=== PATIENT | female | born 1995 | race Caucasian/White ===

== ENCOUNTER 2018-05-14 17:58 | Emergency (ER) | payer OTHER ==
[~2018-05-14] VITALS: Ht 170.2 cm; Wt 70.0 kg
[2018-05-14 18:15] VITALS: BP 121/74
[2018-05-14] MEDS ORDERED: KETOROLAC 30 MG/1 ML IM ONE (18:30)
[2018-05-14] MEDS ORDERED: KETOROLAC 30 MG/1 ML ONE (18:55)
== END 2018-05-14 20:28 | disposition home or self-care (01) ==
LOC: ED 20:05
DX: S16.1XXA Strain of muscle, fascia and tendon at neck level, initial encounter (principal); S83.92XA Sprain of unspecified site of left knee, initial encounter; M54.6 Pain in thoracic spine; M54.5 Low back pain; V49.49XA Driver injured in collision with other motor vehicles in traffic accident, initial encounter; Y93.89 Activity, other specified; Y99.8 Other external cause status; Y92.89 Other specified places as the place of occurrence of the external cause
CPT/HCPCS: 72072; 72110; 72125; 73564; 96372; 99284; J1885

== ENCOUNTER 2020-07-22 17:02 | Emergency (ER) | payer OTHER ==
[~2020-07-22] VITALS: Ht 170.2 cm; Wt 61.7 kg
[2020-07-22] MEDS ORDERED: CEPH-368 PO (17:46)
--- NOTE | 2020-07-22 18:03 | NUR ---
BREAK RN: PT UPRIGHT ON GURNEY AWAKE & COMFORTABLE, TEXTING ON PHONE, RESPONDS APPROP TO STAFF, NAD, NO NEEDS AT HTIS TIME, AWAITING US, VISITOR AT BS, CALL LIGHT WITHIN REACH.
[2020-07-22 18:10] LABS: BASOPHILS % (AUTO) 1 % (0-1); EOSINOPHILS # (AUTO) 0.01 x10^3/uL (0-0.4); EOSINOPHILS % (AUTO) 0 % (1-7); LYMPHOCYTES # (AUTO) 1.87 x10^3/uL (1-3.4); LYMPHOCYTES % (AUTO) 19 % (22-44); MD NO; MEAN CORPUSCULAR HEMOGLOBIN 32.4 pg (27.0-34.8); MEAN CORPUSCULAR HGB CONC 33.2 g/dL (32.4-35.8); MEAN CORPUSCULAR VOLUME 97.6 fL (80-100); MEAN PLATELET VOLUME 8.7 fL (7.4-10.4); MONOCYTES # (AUTO) 0.46 x10^3/uL (0.2-0.8); MONOCYTES % (AUTO) 5 % (2-9); NEUTROPHILS # (AUTO) 7.35 x10^3/uL (1.8-6.8); NEUTROPHILS % (AUTO) 75 % (42-75); PLATELET COUNT 276 x10^3/uL (130-400); RED BLOOD COUNT 3.88 x10^6/uL (3.82-5.3); RED CELL DISTRIBUTION WIDTH 13.4 % (9.6-15.2)
--- NOTE | 2020-07-22 18:12 | NUR ---
BREAK RN: PT TO US
[2020-07-22 18:21] LABS: ALBUMIN 3.6 g/dL (3.4-5.0); ANION GAP 7 mmol/L (5-15); CALCIUM 8.8 mg/dL (8.5-10.1); CHLORIDE 107 mmol/L (98-107); CREATININE 0.46 mg/dL (0.55-1.02)
[2020-07-22 19:12] VITALS: BP 111/64
[2020-07-22 19:32] VITALS: BP 103/55
== END 2020-07-22 20:13 | disposition home or self-care (01) ==
LOC: ED 20:05
DX: O20.0 Threatened abortion (principal); Z3A.08 8 weeks gestation of pregnancy
CPT/HCPCS: 36415; 76801; 80048; 82040; 84702; 85025; 86850; 86900; 99284; J2790; 96372

== ENCOUNTER 2020-08-02 21:27 | Emergency (ER) | payer OTHER ==
[~2020-08-02] VITALS: Ht 170.2 cm; Wt 64.0 kg
[~2020-08-02 21:27] MED LIST: CEPH-368 PO
--- NOTE | 2020-08-02 22:15 | NUR ---
PT SITTING IN BED, CONNECTED TO BP AND O2 MONITORS. PT TEARFUL, UPDATED ON POC, AND CONCERNS ADDRESSED. GRANDMOTHER AT BEDSIDE, CALL LIGHT IN REACH. LAB HAS BEEN TO BEDSIDE.
[2020-08-02 22:19] LABS: BASOPHILS # (AUTO) 0.19 x10^3/uL (0-0.1); BASOPHILS % (AUTO) 2 % (0-1); EOSINOPHILS # (AUTO) 0.18 x10^3/uL (0-0.4); EOSINOPHILS % (AUTO) 1 % (1-7); LYMPHOCYTES # (AUTO) 2.97 x10^3/uL (1-3.4); LYMPHOCYTES % (AUTO) 23 % (22-44); MD NO; MEAN CORPUSCULAR HEMOGLOBIN 32.4 pg (27.0-34.8); MEAN CORPUSCULAR HGB CONC 33.4 g/dL (32.4-35.8); MEAN PLATELET VOLUME 8.4 fL (7.4-10.4); MONOCYTES # (AUTO) 0.73 x10^3/uL (0.2-0.8); MONOCYTES % (AUTO) 6 % (2-9); NEUTROPHILS % (AUTO) 68 % (42-75); PLATELET COUNT 291 x10^3/uL (130-400); RED BLOOD COUNT 3.93 x10^6/uL (3.82-5.3); RED CELL DISTRIBUTION WIDTH 13.8 % (9.6-15.2)
--- NOTE | 2020-08-02 22:20 | NUR ---
PT TO IMAGING.
[2020-08-02 23:14] VITALS: BP 132/79
--- NOTE | 2020-08-02 23:45 | NUR ---
ERP TO BEDSIDE TO UPDATE PT ON POC. PT NO LONGER TEARFUL. SIGNIFICANT OTHER AT BEDSIDE. PT PROVIDED WITH UNDERWEAR FOR D/C.
== END 2020-08-02 23:58 | disposition home or self-care (01) ==
LOC: ED 22:12
DX: O20.0 Threatened abortion (principal); N93.8 Other specified abnormal uterine and vaginal bleeding; Z3A.09 9 weeks gestation of pregnancy
CPT/HCPCS: 36415; 76801; 84702; 85025; 99284

== ENCOUNTER 2020-10-22 18:27 | Outpatient (CLI) | payer OTHER ==
[~2020-10-22] VITALS: Ht 170.2 cm; Wt 72.7 kg
[2020-10-22 19:09] LABS: MICROSCOPIC AUTO
[2020-10-22] MEDS ORDERED: NITROFURANTOIN (MACROBID) 100 MG CAPSULE PO ONE (19:30)
[2020-10-22] MEDS ORDERED: ONDANSETRON ODT 4 MG PO ONE (19:30)
[2020-10-22] MEDS ORDERED: ONDANSETRON ODT 4 MG ONE (19:32)
[2020-10-22] MEDS ORDERED: NITROFURANTOIN (MACROBID) 100 MG CAPSULE ONE (19:32)
[2020-10-22] MEDS ORDERED: PLEASE ENTER HEIGHT AND WEIGHT MC SCH (20:00)
== END 2020-10-22 20:37 | disposition home or self-care (01) ==
LOC: LDOP 18:27
PROVIDERS: ATTEND Obstetrics & Gynecology
DX: O26.893 Other specified pregnancy related conditions, third trimester (principal); R10.9 Unspecified abdominal pain; Z3A.38 38 weeks gestation of pregnancy
CPT/HCPCS: 81001; 87086; 99211; Q0162; G0463

== ENCOUNTER 2021-02-19 19:49 | Inpatient (IN) | payer MEDICAID, OTHER ==
[~2021-02-19] VITALS: Ht 170.2 cm; Wt 66.0 kg
[2021-02-19 19:54] VITALS: BP 134/74
[2021-02-19] MEDS: LACTATED RINGERS 1,000 ML IV SCH (20:15)
[2021-02-19] MEDS ORDERED: OXYTOCIN 30U/ 0.9% NaCL 500ML 500 ML ONE (20:21)
[2021-02-19] MEDS ORDERED: MISOPROSTOL 200 MCG TABLET ONE (20:21)
[2021-02-19] MEDS ORDERED: LIDOCAINE 1%, 20ML ONE (20:21)
[2021-02-19] MEDS ORDERED: NEWBORN KIT ONE (20:21)
[2021-02-19] MEDS: D5%-LACTATED RINGERS 1,000 ML IV SCH (21:00)
[2021-02-19] MEDS ORDERED: PENICILLIN GK 5,000,000 UNITS in DEXTROSE 5% 100 ML IVPB ONE (21:00)
[2021-02-19] MEDS ORDERED: OXYTOCIN 30U/ 0.9% NaCL 500ML 500 ML IV PRN (21:00)
[2021-02-19] MEDS ORDERED: TERBUTALINE 1 MG/ML, 1ML IVPush PRN (21:00)
[2021-02-19] MEDS ORDERED: TERBUTALINE 1 MG/ML, 1ML SQ PRN (21:00)
[2021-02-19] MEDS ORDERED: FENTANYL PF 100 MCG/2ML IV PRN (21:00)
[2021-02-19] MEDS ORDERED: FENTANYL PF 100 MCG/2ML IVPush PRN (21:00)
[2021-02-19] MEDS ORDERED: ONDANSETRON 2MG/ML, 2ML IVPush PRN (21:00)
[2021-02-19] MEDS ORDERED: OXYTOCIN 30U/ 0.9% NaCL 500ML 500 ML IV ONE (21:00)
[2021-02-19] MEDS ORDERED: CALCIUM CARBONATE 500 MG TAB.CHEW PO PRN (21:00)
[2021-02-19 21:04] LABS: AMPHETAMINE SCREEN, URINE Negative (Negative); BARBITURATE SCREEN, URINE Negative (Negative); BENZODIAZEPINE SCREEN, URINE Negative (Negative); CANNABINOID SCREEN, URINE Positive (Negative); COCAINE SCREEN, URINE Negative (Negative); METHADONE SCREEN, URINE Negative (Negative); OPIATE SCREEN, URINE Negative (Negative)
[2021-02-19 21:26] LABS: BASOPHILS % (AUTO) 0 % (0-1); EOSINOPHILS % (AUTO) 1 % (1-7); LYMPHOCYTES % (AUTO) 21 % (22-44); MEAN CORPUSCULAR HEMOGLOBIN 31.7 pg (27.0-34.8); MEAN CORPUSCULAR HGB CONC 33.6 g/dL (32.4-35.8); MEAN PLATELET VOLUME 8.7 fL (7.4-10.4); MONOCYTES % (AUTO) 6 % (2-9); NEUTROPHILS % (AUTO) 72 % (42-75); PLATELET COUNT 295 x10^3/uL (130-400); RED BLOOD COUNT 3.85 x10^6/uL (3.82-5.3); RED CELL DISTRIBUTION WIDTH 13.4 % (9.6-15.2)
[2021-02-19] MEDS ORDERED: LACTATED RINGERS 1,000 ML IVBOLUS PRN (21:30)
[2021-02-19] MEDS ORDERED: EPHEDRINE 50 MG/ML, 1ML IVPush PRN (21:30)
[2021-02-19] MEDS ORDERED: FENTANYL/BUPIV./NS/PF 250 ML EPIDCONT SCH (21:30)
[2021-02-19] MEDS ORDERED: NALOXONE 0.4 MG/ML, 1ML IVPush PRN (21:30)
[2021-02-19 21:31] LABS: MD NO
[2021-02-19] MEDS ORDERED: BUPIVACAINE 0.25% ONE (21:41)
[2021-02-20] MEDS: PENICILLIN GK 2,500,000 UNITS in DEXTROSE 5% 100 ML IVPB SCH ×3 (03:40→09:00)
[2021-02-20] MEDS: LACTATED RINGERS 1,000 ML IV SCH ×3 (05:00→08:16)
[2021-02-20] MEDS: D5%-LACTATED RINGERS 1,000 ML IV SCH (05:00)
[2021-02-20] MEDS ORDERED: BUPIVACAINE 0.25% ONE (07:23)
[2021-02-20 07:39] VITALS: BP 109/66
[2021-02-20] MEDS ORDERED: ONDANSETRON 2MG/ML, 2ML IV PRN (08:30)
[2021-02-20] MEDS ORDERED: HYDROcodone/APAP 5/325 TABLET PO PRN ×2 (08:30)
[2021-02-20] MEDS: OXYTOCIN 30U/ 0.9% NaCL 500ML 500 ML IV SCH ×2 (08:30→18:30)
[2021-02-20] MEDS ORDERED: SIMETHICONE 80 MG CHEW TAB PO PRN (08:30)
[2021-02-20] MEDS ORDERED: MISOPROSTOL 200 MCG TABLET PR PRN (08:30)
[2021-02-20] MEDS ORDERED: METHYLERGONOVINE 0.2 MG/ML IM PRN (08:30)
[2021-02-20] MEDS: PRENATAL VIT/IRON/FA 1 EACH TABLET PO SCH (09:00)
[2021-02-20 10:34] VITALS: BP 120/68
[2021-02-20] MEDS: IBUPROFEN 600 MG TABLET PO PRN ×2 (14:45→20:51)
[2021-02-20 16:19] VITALS: BP 95/57
[2021-02-20 16:43] LABS: BASOPHILS % (AUTO) 0 % (0-1); EOSINOPHILS % (AUTO) 1 % (1-7); LYMPHOCYTES % (AUTO) 12 % (22-44); MEAN CORPUSCULAR HEMOGLOBIN 32.5 pg (27.0-34.8); MEAN CORPUSCULAR HGB CONC 34.1 g/dL (32.4-35.8); MEAN PLATELET VOLUME 8.6 fL (7.4-10.4); MONOCYTES % (AUTO) 6 % (2-9); NEUTROPHILS % (AUTO) 81 % (42-75); PLATELET COUNT 239 x10^3/uL (130-400); RED BLOOD COUNT 3.28 x10^6/uL (3.82-5.3); RED CELL DISTRIBUTION WIDTH 13.1 % (9.6-15.2)
[2021-02-20 16:47] LABS: MD NO
[2021-02-20 19:50] VITALS: BP 101/69
[2021-02-20] MEDS: DOCUSATE 100 MG CAPSULE PO PRN (20:51)
[2021-02-20] MEDS ORDERED: RHOGAM FROM BLOOD BANK 1 NOTE EA IM/IV ONE (21:00)
[2021-02-21 00:15] VITALS: BP 106/65
[2021-02-21] MEDS: OXYTOCIN 30U/ 0.9% NaCL 500ML 500 ML IV SCH ×2 (04:30→14:30)
[2021-02-21] MEDS: IBUPROFEN 600 MG TABLET PO PRN ×3 (05:15→22:56)
[2021-02-21 05:21] VITALS: BP 99/60
[2021-02-21 10:00] VITALS: BP 116/79
[2021-02-21] MEDS: DOCUSATE 100 MG CAPSULE PO PRN ×2 (10:04→19:17)
[2021-02-21] MEDS: PRENATAL VIT/IRON/FA 1 EACH TABLET PO SCH (10:04)
[2021-02-21] MEDS ORDERED: DIPH,PERTUSS(ACELL),TET VAC/PF NC IM-VACC ONE ×2 (15:00→15:30)
[2021-02-21 20:00] VITALS: BP 118/76
[2021-02-21 23:23] VITALS: BP 113/78
[2021-02-22] MEDS: OXYTOCIN 30U/ 0.9% NaCL 500ML 500 ML IV SCH ×2 (00:30→02:46)
[2021-02-22 07:32] VITALS: BP 92/60
[2021-02-22] MEDS: DOCUSATE 100 MG CAPSULE PO PRN (07:54)
[2021-02-22] MEDS: IBUPROFEN 600 MG TABLET PO PRN (07:55)
[2021-02-22] MEDS: PRENATAL VIT/IRON/FA 1 EACH TABLET PO SCH (07:55)
== END 2021-02-22 11:10 | disposition home or self-care (01) | DRG 807 ==
LOC: LDOP 19:49 → LDIP 20:05 → 2NW 02-20 10:30
PROVIDERS: ADMIT Obstetrics & Gynecology; ATTEND Obstetrics & Gynecology
PROC: 10E0XZZ Delivery of Products of Conception, External Approach (ICD-10-PCS; principal; 2021-02-20)
PROC: 0KQM0ZZ Repair Perineum Muscle, Open Approach (ICD-10-PCS; 2021-02-20)
PROC: 3E0234Z Introduction of Serum, Toxoid and Vaccine into Muscle, Percutaneous Approach (ICD-10-PCS; 2021-02-20)
PROC: 10H07YZ Insertion of Other Device into Products of Conception, Via Natural or Artificial Opening (ICD-10-PCS; 2021-02-20)
PROC: 3E0R3BZ Introduction of Anesthetic Agent into Spinal Canal, Percutaneous Approach (ICD-10-PCS; 2021-02-20)
PROC: 00HU33Z Insertion of Infusion Device into Spinal Canal, Percutaneous Approach (ICD-10-PCS; 2021-02-20)
PROC: 10907ZC Drainage of Amniotic Fluid, Therapeutic from Products of Conception, Via Natural or Artificial Opening (ICD-10-PCS; 2021-02-20)
DX: O99.824 Streptococcus B carrier state complicating childbirth (principal); Z37.0 Single live birth; Z20.822 Contact with and (suspected) exposure to COVID-19; Z3A.38 38 weeks gestation of pregnancy; O70.1 Second degree perineal laceration during delivery
CPT/HCPCS: 36415; 80307; 85025; 85461; 86592; 86850; 86900; 87635; 90715; G0378; J2540; J2790; J3010; J7120

== ENCOUNTER 2021-04-17 08:49 | Emergency (ER) | payer MEDICAID ==
[~2021-04-17] VITALS: Ht 170.2 cm; Wt 84.6 kg
--- NOTE | 2021-04-17 09:05 | NUR ---
PA at bedside for exam.
--- NOTE | 2021-04-17 09:10 | NUR ---
Pt given clean catch instructions and walking to restroom with steady gait for UA sample now.
[2021-04-17] MEDS ORDERED: METHOCARBAMOL 750 MG TABLET PO ONE (09:30)
[2021-04-17] MEDS ORDERED: KETOROLAC 30 MG/1 ML IM ONE (09:30)
[2021-04-17] MEDS ORDERED: METHOCARBAMOL 750 MG TABLET ONE (09:42)
[2021-04-17] MEDS ORDERED: KETOROLAC 30 MG/1 ML ONE (09:42)
--- NOTE | 2021-04-17 09:48 | NUR ---
IM injection given with aseptic technique. Pt tolerated with minimal c/o pain. PO med given at this time as well. medical operations supervisor completed.
[2021-04-17] MEDS ORDERED: birth control PO (09:57)
[2021-04-17 10:00] LABS: MICROSCOPIC AUTO
--- NOTE | 2021-04-17 10:17 | NUR ---
UA result reviewed and chart marked for recheck. Pt notified.
[2021-04-17 10:25] VITALS: BP 119/56
== END 2021-04-17 10:27 | disposition home or self-care (01) ==
LOC: ED 09:12
DX: S39.012A Strain of muscle, fascia and tendon of lower back, initial encounter (principal); X58.XXXA Exposure to other specified factors, initial encounter; Y93.89 Activity, other specified; Y92.89 Other specified places as the place of occurrence of the external cause; Y99.8 Other external cause status
CPT/HCPCS: 81001; 96372; 99283; J1885